=== PATIENT | female | born 1970 | race Caucasian/White ===

== ENCOUNTER → 2017-07-15 | Outpatient (CLI) | payer MEDICARE ==
[~2017-07-15] MED LIST: BACLOFEN20 M1 PO; DITROPAN5 MG PO; HYDROCODON-ACE1 EAC5 PO; IBUPROFEN200 M1 PO; MOBIC15 MG PO; NEURONTIN800 MG DOB; VALIUM10 MG PO
--- NOTE | ~2017-07-15 | MR112 ---
[facility] A Service of [facility] & [facility] RADIOLOGY TEXT RESULTS PATIENT: DONALD SPIVEY LOCATION: [facility] : 70 UNIT #: [id number] AGE: [address]: Jurgen Neves MD SEX: F ORDER DR: [id number] [facility] [address]. [place], [place] [address] [id number] O MR#: [id number] Acc #: [id number] NAME: DONALD SPIVEY : 1970 SEX: F STUDY DATE/TIME: 07/15/2017 13:46 UNIT: [facility] ROOM: STUDY DESCRIPTION: MR Lumbar WWo Contrast Attending Physician: Jurgen Neves M.D. Referring Physician: Jurgen Neves M.D. Ordering Physician: Jurgen Neves M.D. Primary Care Physician: Jurgen Neves M.D. MRI CENTER REPORT This report is preliminary unless electronic signature is present. 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 Surgery performed in 2009. Patient currently complains of low back pain with numbness down both legs left greater than right. These symptoms have been worsening over the past 3-4 months. TECHNIQUE Multiplanar imaging of the lumbar spine was performed with and without contrast. 13 mL of MultiHance was used. FINDINGS The lumbar discs are unremarkable and unchanged from the previous examination. Postoperative changes are seen in the lower lumbar spine with laminectomies performed at L3-S1. There is generalized dural ectasia in the lower lumbar spine. There are multiple thin septations in the thecal sac at the lower lumbar area consistent with arachnoid adhesions. The cord is low-lying consistent with previous tethering. The cord and filum terminale appear to be intimately associated with and perhaps adhesed to the posterior wall of the spinal canal at L3 and L4. This configuration is unchanged from the previous examination. The possibility of re-tethering is not excluded. No focal cord lesions are noted. No abnormal enhancement of the cord is seen. 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 This configuration is unchanged from the previous examination. An incisional fluid collection seen on the previous scan is no longer noted. No paraspinous masses or new fluid collections are seen. IMPRESSION [facility]. [facility] A Service of [facility] & [facility] RADIOLOGY TEXT RESULTS PATIENT: DONALD SPIVEY LOCATION: [facility] : 70 UNIT #: [id number] AGE: [address]: Jurgen Neves MD SEX: F ORDER DR: 1. The fluid collection along the incision on the previous scan in 2010 has resolved completely. No paraspinous fluid collections or masses are seen. 2. Low-lying cord probably adherent to the posterior wall of the spinal canal. This configuration is unchanged. Re-tethering is not excluded. 3. Enhancing septations within the thecal sac in the lower lumbar region likely reflect arachnoid adhesions from previous surgery. 4. Generalized dural ectasia in the lower lumbar spine. 5. Normal appearance to the lumbar discs. Dictated by... Nikos Le M.D. THIS IS AN ELECTRONICALLY VERIFIED REPORT Nikos Le M.D. at 07/17/2017 4:54 PM BETITO/yobani TD: 07/17/2017 12:16 JOB #: [id number] MRI CENTER REPORT Page 1 of 1 COPY
== END | disposition home or self-care (01) ==
LOC: CMRI 12:32
DX: Q76.0 Spina bifida occulta (principal); M48.8X6 Other specified spondylopathies, lumbar region
CPT/HCPCS: 72158; A9577